=== PATIENT | male | born 1945 | race Asian ===

== ENCOUNTER 2021-05-16 07:06 | Emergency (ER) | payer MEDICAID, OTHER ==
[2021-05-16] MEDS ORDERED: fentaNYL INJ 100 MCG/2 ML AMP IVP STA (07:24)
--- NOTE | 2021-05-16 07:34 | ED Upper Extremity ---
General Chief Complaint: Upper Extremity Stated Complaint: RT SWELLING/PAIN Nursing Triage Note: Patient's son reports patient has had tingling in his right hand and the sensation of swelling in his right upper arm since last night. Nursing Sepsis Screen: No Definite Risk Source: patient, family Exam Limitations: language barrier History of Present Illness Date Seen by Provider: May 16, 2021 Time Seen by Provider: 07:11 Initial Comments Here with acute onset of right upper arm swelling and pain and complaining of numbness in his hand. Denies recent injury or illness. States he was sitting and watching TV when this suddenly occurred and has progressed overnight till this morning. Arrives with obvious swelling to the right upper arm. Denies lifting, pulling or other injury. Has history of high blood pressure and takes something for that. Apparently baby had a mini stroke several years ago. Follows with Dr. Goncalves. Onset: yesterday Severity: moderate Pain/Injury Location: right arm Method of Injury: unknown Modifying Factors: Worse With Immobilization; Improves With Movement Allergies and Home Medications Allergies Coded Allergies: No Known Drug Allergies (Unverified , 05/16/21) Home Medications Hydrocodone Bit/Acetaminophen 1 Tab Tab, 1 TAB PO Q6H Prescribed by: LILLIE TILLMAN on 05/16/21 1041 Patient Home Medication List Home Medication List Reviewed: Yes Review of Systems Constitutional: see HPI; No chills, No fever EENTM: no symptoms reported Respiratory: No cough, No short of breath Cardiovascular: chest pain (Right anterior chest wall), edema Gastrointestinal: no symptoms reported Musculoskeletal: joint pain, muscle pain, muscle stiffness Skin: change in color; No lesions Psychiatric/Neurological: No Symptoms Reported All Other Systems Reviewed Negative Unless Noted: Yes Past Jgfuazh-Tknnhh-Ekuwvq Hx Past Med/Social Hx: Reviewed Nursing Past Med/Soc Hx Patient Social History Alcohol Use: Denies Use Smoking Status: Never a Smoker 2nd Hand Smoke Exposure: No Recent Infectious Disease Expo: No Recent Hopitalizations: No Seasonal Allergies Seasonal Allergies: No Past Medical History Surgeries: No Respiratory: No Cardiac: Yes High Cholesterol, Hypertension Neurological: Yes Stroke Genitourinary: No Gastrointestinal: No Musculoskeletal: No Endocrine: Yes Diabetes, Non-Insulin dep HEENT: No Cancer: No Psychosocial: No Integumentary: No Blood Disorders: No Family Medical History Reviewed Nursing Family Hx No Pertinent Family Hx Physical Exam Vital Signs Vital Signs - First Documented 05/16/21 07:12 Temp 36.4 Pulse 66 Resp 16 B/P (MAP) 180/78 (112) Pulse Ox 95 O2 Delivery Room Air Capillary Refill : Less Than 3 Seconds Height, Weight, BMI Height: '" Weight: lbs. oz. kg; BMI Method: General Appearance: WD/WN, no apparent distress HEENT: PERRL/EOMI, other (Bilateral hearing aids and quite hard of hearing) Neck: full range of motion, supple Cardiovascular: regular rate, rhythm, no murmur Respiratory: lungs clear, normal breath sounds Gastrointestinal: non tender, soft Back: normal inspection, no CVA tenderness, no vertebral tenderness Shoulder: limited ROM (Right), swelling (Right upper anterior chest wall, right shoulder and most significantly in the right bicep and axilla. Tissue in the right axilla and right upper bicep into the area of the shoulder is tense and does appear to have palpable mass.) Elbow/Forearm: normal inspection, Right, Left Wrist: Yes normal ROM Hand: normal ROM, Right, Left, swelling (Mild swelling from shoulder down to the hand on the right versus left.) Neurologic/Psychiatric: alert, oriented x 3 Skin: warm/dry, other (Blush of erythema from the antecubital space up to the shoulder on the right.) Progress/Results/Core Measures Results/Orders Lab Results Laboratory Tests Test 05/16/21 07:20 Range/Units White Blood Count 10.8 4.3-11.0 10^3/uL Red Blood Count 4.95 4.35-5.85 10^6/uL Hemoglobin 15.1 13.3-17.7 G/DL Hematocrit 44 40-54 % Mean Corpuscular Volume 89 80-99 FL Mean Corpuscular Hemoglobin 31 25-34 PG Mean Corpuscular Hemoglobin Concent 34 32-36 G/DL Red Cell Distribution Width 12.6 10.0-14.5 % Platelet Count 239 130-400 10^3/uL Mean Platelet Volume 9.4 7.4-10.4 FL Immature Granulocyte % (Auto) 1 % Neutrophils (%) (Auto) 67 42-75 % Lymphocytes (%) (Auto) 22 12-44 % Monocytes (%) (Auto) 8 0-12 % Eosinophils (%) (Auto) 2 0-10 % Basophils (%) (Auto) 1 0-10 % Neutrophils # (Auto) 7.2 1.8-7.8 X 10^3 Lymphocytes # (Auto) 2.4 1.0-4.0 X 10^3 Monocytes # (Auto) 0.9 0.0-1.0 X 10^3 Eosinophils # (Auto) 0.2 0.0-0.3 10^3/uL Basophils # (Auto) 0.1 0.0-0.1 10^3/uL Immature Granulocyte # (Auto) 0.1 0.0-0.1 10^3/uL D-Dimer 0.50 H 0.00-0.49 UG/ML Sodium Level 140 135-145 MMOL/L Potassium Level 4.1 3.6-5.0 MMOL/L Chloride Level 105 98-107 MMOL/L Carbon Dioxide Level 25 21-32 MMOL/L Anion Gap 10 5-14 MMOL/L Blood Urea Nitrogen 18 7-18 MG/DL Creatinine 0.84 0.60-1.30 MG/DL Estimat Glomerular Filtration Rate > 60 BUN/Creatinine Ratio 21 Glucose Level 126 H 70-105 MG/DL Calcium Level 9.1 8.5-10.1 MG/DL Corrected Calcium 9.0 8.5-10.1 MG/DL Total Bilirubin 0.7 0.1-1.0 MG/DL Aspartate Amino Transf (AST/SGOT) 20 5-34 U/L Alanine Aminotransferase (ALT/SGPT) 23 0-55 U/L Alkaline Phosphatase 68 40-136 U/L C-Reactive Protein < 0.30 <0.50 MG/DL Total Protein 7.0 6.4-8.2 GM/DL Albumin 4.1 3.2-4.5 GM/DL My Orders Orders - LILLIE TILLMAN MD Chest Pa/Lat (2 View) (05/16/21 07:24) Humerus 2 View Right (05/16/21 07:24) Cbc With Automated Diff (05/16/21 07:24) Comprehensive Metabolic Panel (05/16/21 07:24) Fibrin Degradation Products (05/16/21 07:24) Crp Fs (05/16/21 07:24) Ed Iv/Invasive Line Start (05/16/21 07:24) Fentanyl Inj (Sublimaze Injection) (05/16/21 07:24) Us Venous Upper Ext Rt (05/16/21 07:24) Ct Angio Ext Upper Right W (05/16/21 08:48) Iohexol Injection (Omnipaque 350 Mg/Ml 1 (05/16/21 09:00) Received Contrast (Hold Metformin- Contr (05/16/21 09:00) Sodium Chloride Flush (Catheter Flush Sy (05/16/21 09:00) Ns (Ivpb) (Sodium Chloride 0.9% Ivpb Bag (05/16/21 09:00) Hydrocodone/Apap 5/325 Tablet (Lortab 5 (05/16/21 09:30) Ns Iv 500 Ml (Sodium Chloride 0.9%) (05/16/21 10:45) Ns Iv 500 Ml (Sodium Chloride 0.9%) (05/16/21 10:31) Medications Given in ED Current Medications Medications Dose Ordered Sig/Maryanne Route Start Time Stop Time Status Last Admin Dose Admin Acetaminophen/ Hydrocodone Bitart 1 ea ONCE ONCE PO 05/16/21 09:30 05/16/21 09:31 DC 05/16/21 09:37 1 EA Sodium Chloride 500 ml @ 0 mls/hr Q0M ONCE IV 05/16/21 10:45 05/16/21 10:46 05/16/21 10:37 500 MLS/HR Vital Signs/I&O 05/16/21 07:12 Temp 36.4 Pulse 66 Resp 16 B/P (MAP) 180/78 (112) Pulse Ox 95 O2 Delivery Room Air Blood Pressure Mean: 112 Progress Progress Note : Progress Note Seen and evaluated. Complex case due to presentation. Patient does have obvious swelling and/or mass in the right upper arm. Bicep appears to be intact and no report of lifting injury. Does have swelling down to his hand although that is greatest in the upper arm. Onset with tingling in the right hand. Concerns for DVT versus musculoskeletal injury versus mass. We will get IV, labs, x-ray of the chest and humerus and ultrasound venous right upper extremity to start. Consideration for CT of right upper extremity depending on findings. Fentanyl 25 mcg IV ordered. Monitor patient. 0845: I did discuss the case with Dr. Plummer, radiology on-call. Concerns for hematoma in the upper arm. After discussion and the fact that it does appear to be expanding somewhat we will go ahead and get CT angio of the right upper extremity. Pain controlled after 25 mcg of fentanyl. Monitor patient. 1030: I have discussed the case with Dr. Plummer, radiology. We reviewed the CT films. He does have hematoma with blush of blood that seems to be active from a small vessel. After return from radiology earlier we did apply Rodrigo wrap and has ice pack on arm. He actually reports that pain is better. I did discuss the case with Dr. Goncalves. Patient is on Plavix and does have history of diabetes as well. They will send over her med list. He will follow the patient up as well. At this point, pressure and ice packs are the therapy. Again he seems to be doing better currently. I did discuss all of this at length with the son who translates for his father. We will give normal saline 500 mL bolus to flush contrast and then discharged home. This was discussed with the patient's family who agree with plan and verbalized understanding of instructions. Diagnostic Imaging Diagonstic Imaging: Xray Plain Films/CT/US/NM/MRI: other Comments [facility] [place], [place] NAME: TYLER SALDIVAR [facility] REC#: [id number] PT STATUS: REG ER : 1945 PHYSICIAN: LILLIE TILLMAN MD ADMIT DATE: 05/16/21/ER FS Draft Date of Exam:05/16/21 HUMERUS 2 VIEW RIGHT INDICATION: Right arm swelling. COMPARISON: None available. TECHNIQUE: Two views of the right humerus. FINDINGS: There is some reticulations within the subcutaneous fat in the medial aspect of the distal upper arm, although this could in part be positioning. No discrete soft tissue gas. No fracture or osseous erosions. No radiopaque foreign body. IMPRESSION: 1. Subcutaneous reticulations in the medial aspect of the upper arm may be due to cellulitis or edema. No radiopaque foreign body. Dictated on workstation # [id number] Dict: 05/16/21 0746 Trans: 05/16/21 0749 BENITO [id number] Interpreted by: FIDEL HANSON MD Electronically signed by: Reviewed: Reviewed by Me Diagonstic Imaging: Xray Plain Films/CT/US/NM/MRI: chest Comments [facility] [place] NAME: TYLER SALDIVAR [facility] REC#: [id number] PT STATUS: REG ER : 1945 PHYSICIAN: LILLIE TILLMAN MD ADMIT DATE: 05/16/21/ER FS Draft Date of Exam:05/16/21 CHEST PA/LAT (2 VIEW) CHEST PA/LAT (2 VIEW) Indication: Right upper chest pain. Comparison: None available. Findings: Left basilar heterogeneous reticular opacities. No pleural effusion or pneumothorax. Normal heart size and mediastinal contours. Impression: Minimal left basilar reticular opacities can be seen with aspiration, infectious bronchiolitis or atelectasis. Dictated on workstation # [id number] Dict: 05/16/21 0745 Trans: 05/16/21 0747 BENITO [id number] Interpreted by: FIDEL HANSON MD Electronically signed by: Reviewed: Reviewed by Me Diagonstic Imaging: Ultrasound Plain Films/CT/US/NM/MRI: other Comments [facility] [place] NAME: TYLER SALDIVAR [facility] REC#: [id number] PT STATUS: REG ER : 1945 PHYSICIAN: LILLIE TILLMAN MD ADMIT DATE: 05/16/21/ER FS Draft Date of Exam:05/16/21 US VENOUS UPPER EXT RT INDICATION: Right arm pain and swelling. Grayscale, color-flow and duplex Doppler evaluation of right upper extremity deep venous system was performed. A right internal jugular vein as well as right subclavian and axillary veins are patent. Brachial vein is patent. The basilic and cephalic as well as radial and ulnar veins are patent. No thrombus is seen. There is a complex mass in the upper arm at the area of swelling measuring 4.3 x 3.4 x 2.4 cm. This has the appearance of a large intramuscular hematoma. No internal vascularity is seen. No other abnormalities are detected. IMPRESSION: 1. No evidence of right upper extremity DVT. 2. Findings suggestive of a large intramuscular hematoma right upper arm. Dictated on workstation # [id number] Dict: 05/16/21 0907 Trans: 05/16/21 0910 [facility] [id number] Interpreted by: LY PLUMMER MD Electronically signed by: Reviewed: Reviewed by Me, Discussed w/Radiologist Diagonstic Imaging: CT Plain Films/CT/US/NM/MRI: other Comments NAME: TYLER SALDIVAR [facility] REC#: [id number] PT STATUS: REG ER : 1945 PHYSICIAN: LILLIE TILLMAN MD ADMIT DATE: 05/16/21/ER FS Draft Date of Exam:05/16/21 CT ANGIO EXT UPPER RIGHT W INDICATION: Right arm hematoma. TECHNIQUE: Axial imaging through the right upper extremity was performed after the administration of intravenous contrast and utilizing CT angiography protocol. Multiplanar, 3D and MIP reformations were also performed. All CT scans use one or more of the following dose optimizing techniques: automated exposure control, MA and/or KvP adjustment based on patient size and exam type or iterative reconstruction. FINDINGS: There is an area of increased density noted within the right upper extremity, in the region of the proximal bicep musculature. This area of high density measures approximately 17 mm x 12 mm and is consistent with an area of extravasation, consistent with active bleeding. There is enlargement of the biceps musculature and heterogeneity, consistent with intramuscular hematoma. Hematoma measures approximately 5 cm x 4 cm. No other areas of contrast extravasation are seen. Extravasation is likely coming from an intramuscular branch. The bony structures including the humerus as well as the proximal radius and ulna are intact. The visualized glenoid and distal clavicle appear to be intact. IMPRESSION: Intramuscular hematoma in the right proximal bicep with associated area of acute contrast extravasation, consistent with active bleeding, likely arising from an intramuscular branch. No other significant abnormality is detected. Results were discussed with Dr. Tillman of the emergency department prior to this dictation. Dictated on workstation # [id number] Dict: 05/16/21 1009 Trans: 05/16/21 1025 [facility] [id number] Interpreted by: LY PLUMMER MD Electronically signed by: Reviewed: Reviewed by Me, Discussed w/Radiologist Departure Impression Primary Impression: Hematoma of arm Qualified Codes: S40.021A - Contusion of right upper arm, initial encounter Disposition: 01 HOME, SELF-CARE Condition: Stable Departure-Patient Inst. Decision time for Depature: 10:36 Referrals: KAVEH GONCALVES MD (PCP/Family) Primary Care Physician Patient Instructions: HEMATOMA, How to Use a Shoulder Sling Add. Discharge Instructions: All discharge instructions reviewed with patient and/or family. Voiced understanding. You have a tear in the muscle of the right upper arm that has caused a small collection of blood. You will need to continue to use the Rodrigo wrap over the next 2 to 3 days and then as needed. Use sling for the next few days and then as needed. You may use ice pack over area of concern 20 minutes/h as needed to reduce swelling and pain. Monitor for pulse at the wrist after putting Rodrigo wrap on. Loosen Rodrigo wrap slightly if arm hurts worse or there is tingling. It is very likely you will have bruising to the upper arm and even down into the lower part of the arm. This is expected. Return for increasing pain, increasing swelling, numbness, weakness of the arm or other concerns as needed. Follow-up with Dr. Goncalves in the next several days for recheck. Scripts Hydrocodone Bit/Acetaminophen (HYDROcodone/APAP 5 MG/325 MG TAB) 1 Tab Tab 1 TAB PO Q6H for Pain, #8 TAB 0 Refills Prov: LILLIE ITLLMAN MD 05/16/21 Copy Copies To 1: KAVEH GONCALVES MD, TIMOTHY D MD May 16, 2021 07:34
--- NOTE | 2021-05-16 07:47 | Diagnostic Imaging Report ---
CHEST PA/LAT (2 VIEW) Indication: Right upper chest pain. Comparison: None available. Findings: Left basilar heterogeneous reticular opacities. No pleural effusion or pneumothorax. Normal heart size and mediastinal contours. Impression: Minimal left basilar reticular opacities can be seen with aspiration, infectious bronchiolitis or atelectasis. Dictated by: Dictated on workstation # [id number]
[2021-05-16 07:48] LABS: WHITE BLOOD COUNT 10.8 10^3/uL (4.3-11.0)
[2021-05-16 07:49] LABS: BASOPHILS # (AUTO) 0.1 10^3/uL (0.0-0.1); BASOPHILS % (AUTO) 1 % (0-10); EOSINOPHILS # (AUTO) 0.2 10^3/uL (0.0-0.3); EOSINOPHILS % (AUTO) 2 % (0-10); HEMATOCRIT 44 % (40-54); HEMOGLOBIN 15.1 G/DL (13.3-17.7); LYMPHOCYTES # (AUTO) 2.4 X 10^3 (1.0-4.0); LYMPHOCYTES % (AUTO) 22 % (12-44); MEAN CORPUSCULAR HEMOGLOBIN 31 PG (25-34); MEAN CORPUSCULAR HGB CONC 34 G/DL (32-36); MEAN CORPUSCULAR VOLUME 89 FL (80-99); MEAN PLATELET VOLUME 9.4 FL (7.4-10.4); MONOCYTES # (AUTO) 0.9 X 10^3 (0.0-1.0); MONOCYTES % (AUTO) 8 % (0-12); NEUTROPHILS # (AUTO) 7.2 X 10^3 (1.8-7.8); NEUTROPHILS % (AUTO) 67 % (42-75); PLATELET COUNT 239 10^3/uL (130-400)
--- NOTE | 2021-05-16 07:50 | Diagnostic Imaging Report ---
INDICATION: Right arm swelling. COMPARISON: None available. TECHNIQUE: Two views of the right humerus. FINDINGS: There is some reticulations within the subcutaneous fat in the medial aspect of the distal upper arm, although this could in part be positioning. No discrete soft tissue gas. No fracture or osseous erosions. No radiopaque foreign body. IMPRESSION: 1. Subcutaneous reticulations in the medial aspect of the upper arm may be due to cellulitis or edema. No radiopaque foreign body. Dictated by: Dictated on workstation # [id number]
[2021-05-16 07:56] LABS: ALKALINE PHOSPHATASE 68 U/L (40-136); BILIRUBIN,TOTAL 0.7 MG/DL (0.1-1.0); BUN/CREATININE RATIO 21; CALCIUM 9.1 MG/DL (8.5-10.1); CARBON DIOXIDE 25 MMOL/L (21-32); CHLORIDE 105 MMOL/L (98-107); CREATININE SERUM 0.84 MG/DL (0.60-1.30); GFR ESTIMATED > 60; GLUCOSE 126 MG/DL (70-105); SODIUM 140 MMOL/L (135-145)
[2021-05-16 07:57] LABS: ALANINE AMINOTRANSFERASE 23 U/L (0-55); ALBUMIN 4.1 GM/DL (3.2-4.5)
[2021-05-16 08:02] LABS: POTASSIUM 4.1 MMOL/L (3.6-5.0)
[2021-05-16] MEDS ORDERED: HOLD METFORMIN - RECEIVED CONTRAST 20 ML VIAL IV SCH (09:00)
[2021-05-16] MEDS ORDERED: CATHETER FLUSH 10 ML SYR IV PRN (09:00)
[2021-05-16] MEDS ORDERED: NS 100 ML (IVPB) BAG IV ONE (09:00)
[2021-05-16] MEDS ORDERED: IOHEXOL 350 MG/ML 150 ML (OMNIPAQUE 350) VIAL IV ONE (09:00)
--- NOTE | 2021-05-16 09:11 | Diagnostic Imaging Report ---
INDICATION: Right arm pain and swelling. Grayscale, color-flow and duplex Doppler evaluation of right upper extremity deep venous system was performed. A right internal jugular vein as well as right subclavian and axillary veins are patent. Brachial vein is patent. The basilic and cephalic as well as radial and ulnar veins are patent. No thrombus is seen. There is a complex mass in the upper arm at the area of swelling measuring 4.3 x 3.4 x 2.4 cm. This has the appearance of a large intramuscular hematoma. No internal vascularity is seen. No other abnormalities are detected. IMPRESSION: 1. No evidence of right upper extremity DVT. 2. Findings suggestive of a large intramuscular hematoma right upper arm. Dictated by: Dictated on workstation # [id number]
[2021-05-16] MEDS ORDERED: HYDROcodone/APAP 5 MG/325 MG (LORTAB) TAB PO ONE (09:30)
--- NOTE | 2021-05-16 10:26 | Diagnostic Imaging Report ---
INDICATION: Right arm hematoma. TECHNIQUE: Axial imaging through the right upper extremity was performed after the administration of intravenous contrast and utilizing CT angiography protocol. Multiplanar, 3D and MIP reformations were also performed. All CT scans use one or more of the following dose optimizing techniques: automated exposure control, MA and/or KvP adjustment based on patient size and exam type or iterative reconstruction. FINDINGS: There is an area of increased density noted within the right upper extremity, in the region of the proximal bicep musculature. This area of high density measures approximately 17 mm x 12 mm and is consistent with an area of extravasation, consistent with active bleeding. There is enlargement of the biceps musculature and heterogeneity, consistent with intramuscular hematoma. Hematoma measures approximately 5 cm x 4 cm. No other areas of contrast extravasation are seen. Extravasation is likely coming from an intramuscular branch. The bony structures including the humerus as well as the proximal radius and ulna are intact. The visualized glenoid and distal clavicle appear to be intact. IMPRESSION: Intramuscular hematoma in the right proximal bicep with associated area of acute contrast extravasation, consistent with active bleeding, likely arising from an intramuscular branch. No other significant abnormality is detected. Results were discussed with Dr. Bolden of the emergency department prior to this dictation. Dictated by: Dictated on workstation # [id number]
[2021-05-16] MEDS ORDERED: NS IV 500 ML 500 ML ONE (10:31)
[2021-05-16] MEDS ORDERED: ACHD5005 PO (10:40)
[2021-05-16] MEDS ORDERED: NS IV 500 ML 500 ML IV ONE (10:45)
[2021-05-16 11:04] VITALS: BP 164/81
== END 2021-05-16 11:10 | disposition home or self-care (01) ==
LOC: ER FS 07:09
DX: S40.021A Contusion of right upper arm, initial encounter (principal); I10 Essential (primary) hypertension; E11.9 Type 2 diabetes mellitus without complications; Z86.73 Personal history of transient ischemic attack (TIA), and cerebral infarction without residual deficits; X58.XXXA Exposure to other specified factors, initial encounter
CPT/HCPCS: 36415; 71046; 73060; 73206; 80053; 85025; 85379; 86141; 93971; 99284; A4565

== ENCOUNTER 2021-06-16 05:55 | Outpatient (CLI) | payer MEDICAID ==
[~2021-06-16] VITALS: Ht 157.5 cm; Wt 63.1 kg
[~2021-06-16 05:55] MED LIST: ACHD5005 PO
[2021-06-16] MEDS ORDERED: CLOP75TA28 PO (14:21)
[2021-06-16] MEDS ORDERED: LISI-729 PO (14:21)
[2021-06-16] MEDS ORDERED: GABA300C PO (14:21)
[2021-06-16] MEDS ORDERED: FAMO20TA3 PO (14:21)
[2021-06-16] MEDS ORDERED: METF-397 PO (14:21)
[2021-06-16] MEDS ORDERED: ATOR20TA66 PO (14:21)
[2021-06-16] MEDS ORDERED: OXYB5TAB13 PO (14:21)
== END 2021-06-16 15:13 | disposition home or self-care (01) ==
LOC: PREOP 05:55
PROVIDERS: ATTEND Surgery
DX: Z01.818 Encounter for other preprocedural examination (principal)

== ENCOUNTER → 2021-06-20 | Outpatient (CLI) | payer MEDICAID ==
[~2021-06-20] MED LIST changes: +ATOR20TA66 PO; +CLOP75TA28 PO; +FAMO20TA3 PO; +GABA300C PO; +LISI-729 PO; +METF-397 PO; +OXYB5TAB13 PO
== END ==
LOC: LAB FS 10:10
PROVIDERS: ATTEND Surgery
DX: Z01.812 Encounter for preprocedural laboratory examination (principal); Z12.11 Encounter for screening for malignant neoplasm of colon; K21.9 Gastro-esophageal reflux disease without esophagitis; K29.50 Unspecified chronic gastritis without bleeding; Z20.822 Contact with and (suspected) exposure to COVID-19
CPT/HCPCS: 87635

== ENCOUNTER 2021-06-23 09:13 | Day surgery (SDC) | payer MEDICAID ==
[~2021-06-23] VITALS: Ht 157 cm; Wt 63.1 kg
[2021-06-23] MEDS ORDERED: LACTATED RINGERS 1,000 ML IV STA (09:14)
[2021-06-23] MEDS ORDERED: HURRICAINE EXT TUBE (BENZOCAINE) XX PRN (09:15)
[2021-06-23] MEDS ORDERED: LACTATED RINGERS 1,000 ML IV ONE (09:18)
[2021-06-23 09:30] VITALS: BP 166/79
--- NOTE | 2021-06-23 11:00 | Progress Note-Pre Operative ---
Pre-Operative Progress Note H&P Reviewed The H&P was reviewed, patient examined and no changes noted. Time Seen by Provider: 10:58 Date H&P Reviewed: Jun 23, 2021 Time H&P Reviewed: 10:58 Pre-Operative Diagnosis: Chronic Gastritis, Screening colon LIZZY NICOLE DO Jun 23, 2021 11:00
[2021-06-23] MEDS ORDERED: MIDAZOLAM 2 MG/2 ML (VERSED) VIAL ONE (11:19)
[2021-06-23] MEDS ORDERED: PROPOFOL INJECTION 50 ML IV ONE (11:20)
[2021-06-23 11:55] VITALS: BP 126/66
[2021-06-23 12:00] VITALS: BP 112/60
[2021-06-23 12:05] VITALS: BP 113/57
--- NOTE | 2021-06-23 12:08 | Progress Note-Post Operative ---
Post-Operative Progess Note Surgeon (s)/Residential Glazier (s) Surgeon LIZZY NICOLE DO Residential Glazier: none Pre-Operative Diagnosis Chronic Gastritis, Screening colon Post-Operative Diagnosis Duodenal ulcer Gastritis Int hemorrhoids Procedure & Operative Findings Date of Procedure 06/23/21 Procedure Performed/Findings EGD with bx Colonoscopy PROCEDURE NOTE: After informed consent was obtained, the patient was brought to the endoscopy suite, placed in bed in left lateral decubitus position. He was administered IV sedation by the MACHINE STONECUTTER who then monitored vitals the entire time, heart rate, blood pressure and pulse ox and the scope was inserted down the mouth through the esophagus into the stomach. On the way down, noted some mild esophagitis, took a picture, pushed into the stomach and noted some old blood in the stomach. Then pushed past the antrum into the duodenum. I the duodenum I found ulcers and took a picture and then did a biopsy of one of them. There was no active bleeding, looked like they may have in the past. Pulled back and did a biopsy of antrum, then retroflexed the scope, did not see a hiatal hernia, took a picture. Finally pulled the scope into the GE junction and then did a biopsy of the GE junction. Pushed the scope back into the stomach, suctioned all the air out of the stomach. At this point pulled the scope up the esophagus and out the mouth. I then switched gloves and camera and went down below to start the colonosocpy. Pushed the scope all the way to about 150 cm and pushed into the cecum, took a picture of appendiceal orifice and then slowly withdrew the scope insufflating to look circumferentially at the castrejon from the cecum, up the ascending colon to the hepatic flexure, then down the transverse colon, splenic flexure, into the descending colon down in the sigmoid and then into the rectal vault and retroflexed the scope. Took picture of the internal hemorrhoids. The patient tolerated the procedure. He was recovered in endoscopy suite. Anesthesia Type IV sedation by MACHINE STONECUTTER Estimated Blood Loss Estimated blood loss (mL): scant Specimens/Packing Specimens Removed duodenal bx antral bx body of stomach bx GE jxn bx LIZZY NICOLE DO Jun 23, 2021 12:08
--- NOTE | 2021-06-23 12:09 | Endoscopy Discharge Instruct ---
Endo Procedure/Findings Findings 1.: Duodenal Ulcer 2.: Gastritis 3.: Internal Hemorrhoids Discharge Instructions - Activity: You might feel a little sleepy until tomorrow. This is due to the medicine you received to relax you. Until tomorrow, you should: NOT drive a car, operate machinery or power tools. NOT drink any alcoholic beverages. NOT make any important decisions or sign importortant papers. Do not return to work until tomorrow, unless otherwise instructed. Resume previous activities tomorrow. Diet: Start by taking liquids. If you tolerate liquids, advance to solid food. 1.: EGD in 6-8 weeks 2.: Colonscopy in 10 years Notify Physician - If you experience excessive bleeding, unusual abdominal pain, fever, or chest pain, contact your doctor immediately. LIZZY NICOLE DO Jun 23, 2021 12:09
[2021-06-23 12:10] VITALS: BP 113/57
[2021-06-23 12:40] VITALS: BP 113/57
--- NOTE | 2021-06-23 13:15 | Anesthesia-General Post-Op ---
MAC Patient Condition Mental Status/LOC: Same as Preop Cardiovascular: Satisfactory Nausea/Vomiting: Absent Respiratory: Satisfactory Pain: Controlled Complications: Absent Post Op Complications Complications None Follow Up Care/Instructions Patient Instructions None needed. Anesthesiology Discharge Order Discharge Order Patient is doing well, no complaints, stable vital signs, no apparent adverse anesthesia problems. No complications reported per nursing. MERCED GARCIA CRNA Jun 23, 2021 13:15
== END 2021-06-23 12:45 | disposition home or self-care (01) ==
LOC: ENDO 09:13
PROVIDERS: ATTEND Surgery
DX: Z12.11 Encounter for screening for malignant neoplasm of colon (principal); K64.8 Other hemorrhoids; K29.50 Unspecified chronic gastritis without bleeding; K20.90 Esophagitis, unspecified without bleeding; K26.9 Duodenal ulcer, unspecified as acute or chronic, without hemorrhage or perforation; I10 Essential (primary) hypertension; E11.9 Type 2 diabetes mellitus without complications; Z79.899 Other long term (current) drug therapy; Z79.82 Long term (current) use of aspirin
CPT/HCPCS: 82947; 88305